=== PATIENT | female | born 2000 | race African-American/Black ===

== ENCOUNTER 2020-11-02 07:24 | Emergency (ER) | payer SELFPAY ==
[~2020-11-02] VITALS: Ht 162.6 cm; Wt 56.0 kg
[2020-11-02 07:36] VITALS: BP 105/71
--- NOTE | 2020-11-02 07:52 | PHYS DOC ---
Past History Past Medical History: No Pertinent History Past Surgical History: Other Additional Past Surgical Histo: right arm Alcohol Use: None Adult General Chief Complaint Chief Complaint: VAGINAL PROBLEM HPI HPI Patient is a 20-year-old female complaining for vaginal discharge and odor. Patient is 9 , first found out she was yesterday and currently pending outpatient [facility]LINDER MACHINE OPERATOR visit to establish care. Here today as she started noticing thicker discharge than usual with a foul-smelling odor. She is here today concerned for bacterial vaginosis. She has unprotected sex with x1 individual, her partner. She has no history of STDs. She does not want to be checked for gonorrhea and chlamydia today and deferred this to her initial CYLINDER MACHINE OPERATOR visit, she just wants to be checked for bacterial vaginosis today Review of Systems Review of Systems Fourteen body systems of review of systems have been reviewed. See HPI for pertinent positives and negative responses, other sanchez all other systems are negative, non-pertinent or non-contributory Allergies Allergies Allergies Coded Allergies Type Severity Reaction Last Updated Verified No Known Drug Allergies 11/02/20 No Physical Exam Physical Exam Constitutional: Well developed, well nourished, no acute distress, non-toxic appearance. HENT: Normocephalic, atraumatic, bilateral external ears normal, oropharynx moist, no oral exudates, nose normal. Eyes: PERRLA, EOMI, conjunctiva normal, no discharge. Neck: Normal range of motion, no tenderness, supple, no stridor. Cardiovascular: Heart rate regular, sinus rhythm, no murmurs rubs or gallops Lungs & Thorax: Bilateral breath sounds clear to auscultation Abdomen: Bowel sounds normal, soft, no tenderness, no masses, no pulsatile masses. Nonsurgical abdomen, no peritoneal signs : External genitalia unremarkable, no lesions or obvious exudate, vaginal vault unremarkable, cervix well-appearing, there is moderate amount of malodorous thick white discharge without any other concerning abnormalities or foreign bodies Skin: Warm, dry, no erythema, no rash. Back: No tenderness, no CVA tenderness. Extremities: No tenderness, no cyanosis, no clubbing, ROM intact, no edema. Neurologic: Alert and oriented X 3, grossly normal motor & sensory function, no focal deficits noted. Psychologic: Anxious affect and mood Current Patient Data Vital Signs Vital Signs Date Time Temp Pulse Resp B/P (MAP) Pulse Ox O2 Delivery O2 Flow Rate FiO2 11/02/20 07:36 98.1 79 18 105/71 (82) 99 Room Air Lab Results Laboratory Tests Test 11/02/20 07:40 11/02/20 07:48 Urine Collection Type Unknown Urine Color Yellow Urine Clarity Hazy Urine pH 7.0 Urine Specific [place] 1.025 Urine Protein Neg Urine Glucose (UA) Neg mg/dL Urine Ketones (Stick) Neg mg/dL Urine Blood Neg Urine Nitrite Neg Urine Bilirubin Neg Urine Urobilinogen Dipstick 1.0 mg/dL Urine Leukocyte Esterase Neg Urine RBC Occ /HPF Urine WBC 1-4 /HPF Urine Squamous Epithelial Cells Few /LPF Urine Bacteria Few /HPF Urine Mucus Slight /LPF Bedside Urine HCG, Qualitative hcg positive EKG EKG [] Radiology/Procedures Radiology/Procedures [] Heart Score Risk Factors: Risk Factors: DM, Current or recent (<one month) smoker, HTN, HLP, family history of CAD, obesity. Risk Scores: Risk Factors: DM, Current or recent (<one month) smoker, HTN, HLP, family history of CAD, obesity. Course & Med Decision Making Course & Med Decision Making Discussed with the patient all findings and diagnostic testing. I discussed most likely diagnosis of bacterial vaginosis. Discussed treatment options that included Flagyl or clindamycin, joint decision to pursue Flagyl therapy. I stressed need for close outpatient follow-up to review today's ER visit. Strict return precautions were also discussed at length with good understanding by patient. Patient voiced understanding and agreement with the plan. Patient knows to come back for repeat evaluation if concerning signs or symptoms present prior to outpatient follow-up. Hemodynamically stable, ambulatory and well- appearing at time of disposition. Dragon Disclaimer Dragon Disclaimer This electronic medical record was generated, in whole or in part, using a voice recognition dictation system. Departure Departure: Impression: Primary Impression: Bacterial vaginosis in Disposition: 01 DC HOME SELF CARE/HOMELESS Condition: GOOD Referrals: PCP,TALIA (PCP) Patient Instructions: Bacterial Vaginosis Additional Instructions: As discussed prior to ER departure, you were diagnosed with bacterial vaginosis. This is not an STD. This will respond to medical therapy with Flagyl medication that was given to you prior to ER departure. It is imperative anyways that you do not drink while but it is especially imperative to not drink while using this medication. Please follow-up with your CYLINDER MACHINE OPERATOR to establish care as he recently found out you are . If any concerning signs or symptoms present prior to outpatient follow-up please do not hesitate to come back for repeat evaluation. It was a pleasure to take care of you and I wish you the best going forward Scripts Metronidazole (FLAGYL) 500 Mg Tablet 500 MG PO BID for bacterial vaginosis for 7 Days, #13 TAB Prov: AUSTYN IBARRA DO 11/02/20 AUSTYN IBARRA DO Nov 02, 2020 07:51
[2020-11-02 08:12] LABS: BACTERIA,URINE FEW /HPF (0-FEW); BILIRUBIN,URINE NEG (NEG); CLARITY,URINE HAZY; COLOR,URINE YELLOW; GLUCOSE,URINE NEG (NEG); NITRITE,URINE NEG (NEG); RBC,URINE OCC /HPF (0-2); SQUAMOUS EPITHELIAL CELL,UR FEW /LPF
[2020-11-02] MEDS ORDERED: METR500T PO (08:51)
[2020-11-02] MEDS ORDERED: metroNIDAZOLE 500 MG TABLET PO ONE (09:00)
== END 2020-11-02 09:10 | disposition home or self-care (01) ==
LOC: ER 07:24
DX: O23.591 Infection of other part of genital tract in pregnancy, first trimester (principal); B96.89 Other specified bacterial agents as the cause of diseases classified elsewhere; Z3A.09 9 weeks gestation of pregnancy
CPT/HCPCS: 81001; 81025; 99283; Q0111

== ENCOUNTER 2020-11-23 08:08 | Emergency (ER) | payer SELFPAY ==
[~2020-11-23] VITALS: Ht 160 cm; Wt 54.0 kg
[~2020-11-23 08:08] MED LIST: METR500T PO
[2020-11-23 08:13] VITALS: BP 124/62
[2020-11-23] MEDS ORDERED: IV NORMAL SALINE 1,000ML 1,000 ML IV ONE (08:30)
[2020-11-23] MEDS ORDERED: ONDANSETRON PF 4 MG/2 ML VIAL. IVP ONE (08:30)
--- NOTE | 2020-11-23 09:05 | PHYS DOC ---
Past History Past Medical History: No Pertinent History Past Surgical History: Other Additional Past Surgical Histo: right arm Alcohol Use: None Adult General Chief Complaint Chief Complaint: NAUSEA/VOMITING/DIARRHEA HPI HPI Patient is a 20-year-old female who presents to the emergency room complaining of abdominal pain, nausea, vomiting, spotting. Patient reports that she is . She is unsure how far along she is. She had a positive test at the beginning of this month. She has her first OB appointment tomorrow. She states symptoms started a couple days ago. This is her second . She states she had vomiting with her first as well. She states the abdominal pain is lower and feels like cramping. She states that she has wiped a couple of times over the last couple days and has had a small pink tinge suggestive of spotting. She feels like she is unable to keep anything down. Review of Systems Review of Systems Complete ROS is negative unless otherwise documented in HPI Current Medications Current Medications Current Medications Medications (Trade) Dose Ordered Sig/Cherri Start Time Stop Time Status Last Admin Dose Admin Ondansetron HCl (Zofran) 4 mg 1X ONCE 11/23/20 08:30 11/23/20 08:34 DC 11/23/20 08:45 4 MG Sodium Chloride 1,000 ml @ 1,000 mls/hr 1X ONCE 11/23/20 08:30 11/23/20 09:29 11/23/20 08:46 1,000 MLS/HR Allergies Allergies Allergies Coded Allergies Type Severity Reaction Last Updated Verified No Known Drug Allergies 11/02/20 No Physical Exam Physical Exam General: Awake, alert, NAD. Well Nourished, well hydrated. Cooperative HEENT: Atraumatic, EOMI, PERRL, airway patent, moist oral mucosa Neck: Supple, trachea midline Respiratory: CTA bilaterally, normal effort, no wheezing/crackles CV: RRR, no murmur, cap refill <2 GI: Soft, nondistended, nontender, no masses MSK: No obvious deformities Skin: Warm, dry, intact Neuro: A&O x3, speech NL, sensory and motor grossly intact, no focal deficits Psych: Normal affect, normal mood, not suicidal or homicidal Current Patient Data Vital Signs Vital Signs Date Time Temp Pulse Resp B/P (MAP) Pulse Ox O2 Delivery O2 Flow Rate FiO2 11/23/20 08:13 97.4 82 16 124/62 (82) 100 Room Air EKG EKG [] Radiology/Procedures Radiology/Procedures [] Heart Score Risk Factors: Risk Factors: DM, Current or recent (<one month) smoker, HTN, HLP, family history of CAD, obesity. Risk Scores: Risk Factors: DM, Current or recent (<one month) smoker, HTN, HLP, family history of CAD, obesity. Course & Med Decision Making Course & Med Decision Making Pertinent Labs and Imaging studies reviewed. (See chart for details) Patient is a 20-year-old female who presents to the emergency room complaining of vomiting, abdominal pain, spotting in . Given that she is not had an ultrasound yet we will do a beta-hCG and an ultrasound to rule out ectopic p regnancy. CBC and BMP ordered to evaluate patient's hydration status and any signs of infection or anemia. Patient was given fluids and Zofran. While here in the emergency room patient developed chest pain. EKG and chest x-ray were ordered. Patient was given Tylenol. She is not hypoxic and pain is not suggestive of a pulmonary embolism. Patient is feeling significantly better. She will be discharged home on Zofran. She has a follow-up appointment tomorrow. Patient's test results and vitals while in the ED were fully reviewed and discussed with the patient. Patient is stable and at this time does not need admission to the hospital. We have discussed strict return precautions and the importance of following up with their Primary Care Physician. Patient stated understanding and was given an opportunity to ask any questions. Patient is in agreement with plan. Dragon Disclaimer Dragon Disclaimer This electronic medical record was generated, in whole or in part, using a voice recognition dictation system. Departure Departure: Impression: Primary Impression: Vomiting affecting Disposition: 01 DC HOME SELF CARE/HOMELESS Condition: IMPROVED Referrals: PCP,NO (PCP) Patient Instructions: Abdominal Pain During Scripts Nitrofurantoin Monohyd/M-Cryst (MACROBID 100 MG CAPSULE) 100 Mg Capsule 1 CAP PO BID for UTI for 5 Days, #10 CAP 0 Refills Prov: GILDA WANG MD 11/23/20 Doxylamine/Pyridoxine Hcl (DICLEGIS 10-10 MG TABLET) 1 Each Tablet. 2 TAB PO QHS for morning sickness for 30 Days, #60 TAB 0 Refills Prov: GILDA WANG MD 11/23/20 Ondansetron (ONDANSETRON ODT) 4 Mg Tab.rapdis 1 TAB PO PRN Q6-8HRS for nausea, #16 TAB Prov: GILDA WANG MD 11/23/20 GILDA WANG MD Nov 23, 2020 09:05
[2020-11-23] MEDS ORDERED: ACETAMINOPHEN 325 MG TABLET PO ONE (09:15)
--- NOTE | 2020-11-23 09:17 | EKG ---
[address] [address] Test Date: 2020-11-23 Test Time: 09:10:34 Pat Name: HARDIK VELA Department: Room: Gender: F Coding Validator: SHAINA : 2000 Requested By: GILDA WANG Order Number: [id number] Reading MD: Measurements Intervals [place] Rate: 85 P: 64 MT: 164 QRS: 89 QRSD: 96 T: 62 QT: 346 QTc: 417 Interpretive Statements SINUS RHYTHM S1,S2,S3 PATTERN NO SPECIFIC ECG ABNORMALITIES RI6.02 No previous ECG available for comparison
[2020-11-23 09:19] LABS: BASO % 1 % (0-3); EOS # 0.1 x10^3/uL (0.0-0.7); EOS % 1 % (0-3); HEMOGLOBIN 14.4 g/dL (12.0-15.5); LYMPH # 2.1 x10^3/uL (1.0-4.8); LYMPH % 48 % (24-48); MEAN CORPUSCULAR HEMOGLOBIN 32 pg (25-35); MEAN CORPUSCULAR HGB CONC 34 g/dL (31-37); MEAN CORPUSCULAR VOLUME 94 fL (79-100); MONO # 0.5 x10^3/uL (0.0-1.1); MONO % 10 % (0-9); NEUT # 1.8 x10^3uL (1.8-7.7); NEUT % 40 % (31-73); PLATELET COUNT 123 x10^3/uL (140-400); RED BLOOD COUNT 4.56 x10^6/uL (3.50-5.40); RED CELL DISTRIBUTION WIDTH 13.6 % (11.5-14.5); WHITE BLOOD COUNT 4.4 x10^3/uL (4.0-11.0)
[2020-11-23 09:28] LABS: HEMOGLOBIN ISTAT 12.9 gm/dL; POTASSIUM ISTAT 3.7 mmol/L (3.5-5.0)
--- NOTE | 2020-11-23 09:43 | RAD ---
EXAM: CHEST 1 VIEW History: Chest pain COMPARISON: None available. TECHNIQUE: Single portable radiograph of the chest FINDINGS: The cardiac silhouette is unremarkable. The lungs are clear bilaterally. The costophrenic sulci are clear and well demarcated. IMPRESSION: No radiographic evidence of an acute cardiopulmonary process. Electronically signed by: Pj Oleary MD (11/23/2020 9:33 AM) [id number]
[2020-11-23 10:33] LABS: BILIRUBIN,URINE NEG (NEG); CLARITY,URINE HAZY; COLOR,URINE YELLOW; GLUCOSE,URINE NEG (NEG)
[2020-11-23 10:34] LABS: BACTERIA,URINE 0 /HPF (0-FEW); NITRITE,URINE NEG (NEG); RBC,URINE OCC /HPF (0-2); SQUAMOUS EPITHELIAL CELL,UR MANY /LPF; UROBILINOGEN,URINE 0.2 mg/dL (0.2 mg/dL)
--- NOTE | 2020-11-23 10:39 | RAD ---
EXAM: Pelvic sonogram. HISTORY: Bleeding and pain. TECHNIQUE: Sonographic imaging of the pelvis was performed. COMPARISON: None. FINDINGS: The uterus measures 8.7 x 5.3 x 8.2 cm. There is a single intrauterine gestational sac with pole and yolk sac. The crown-rump length is 6.3 mm, corresponding with a gestational age of 6 weeks and 3 days. The heart rate is 140 bpm. The gestational sac is normal in considerati on and location. There is no evidence of a subchorionic hematoma. The ovaries are normal in size and demonstrate normal blood flow. There is no pelvic free fluid. IMPRESSION: 1. Single intrauterine fetus with normal heart rate and gestational age based on ultrasound measureme nts of 6 weeks and 3 days. 2. No acute sonographic finding. Electronically signed by: Ally Morel MD (11/23/2020 10:31 AM) [facility]
[2020-11-23] MEDS ORDERED: DOXY1TAB3 PO (11:10)
[2020-11-23] MEDS ORDERED: ONDA4TAB12 PO (11:10)
[2020-11-23] MEDS ORDERED: NITR100C62 PO (11:11)
== END 2020-11-23 11:24 | disposition home or self-care (01) ==
LOC: ER 08:08
DX: O21.9 Vomiting of pregnancy, unspecified (principal); R10.9 Unspecified abdominal pain; Z98.890 Other specified postprocedural states
CPT/HCPCS: 36415; 71045; 76801; 80047; 81001; 81025; 84702; 85025; 93005; 96361; 96374; 99285; J2405; J7030

== ENCOUNTER 2020-12-08 05:20 | Emergency (ER) | payer SELFPAY ==
[~2020-12-08] VITALS: Ht 160 cm; Wt 54.0 kg
[2020-12-08 05:20] VITALS: BP 143/69
[~2020-12-08 05:20] MED LIST changes: +DOXY1TAB3 PO; +NITR100C62 PO; +ONDA4TAB12 PO
--- NOTE | 2020-12-08 05:34 | PHYS DOC ---
Past History Past Medical History: No Pertinent History (AMY OLIVO MD) Past Surgical History: Other Additional Past Surgical Histo: right arm (AMY OLIVO MD) Alcohol Use: None (AMY OLIVO MD) General Adult HPI: HPI: ".. I am out of my nausea.. meds.. the Zofran.. .. I ate chicken quesadilla.. Last night.. But after I went to bed I started having my vomiting and.. I have ... been vomiting all night long..... I was here back on the October for the same thing.. no spotting tonight....just this stomach pain from vomiting..."." up here in the pit of my stomach.. " I am vomiting so hard.. it makes my upper back and chest hurt now.. ".." Just drank water this morning .. and I am even puking that up.. " Patient is a 20 year old female who presents with above hx and complaints intractable hyperemesis gravidarum since eating quesadilla last night. Patient seen on arrival. Patient is estimated 8 weeks . This is her second . Did have similar symptoms with first . Pt. has been taking vitamins when she is not vomiting. Patient does have scheduled follow- up at where she plans to deliver. Patient currently following [facility]. Patient did have bacterial vaginosis on 11/02/2020 visit which was treated with antibiotics. Patient requesting Touraan which worked for her in the past for the intractable vomiting associated with her . Patient denies any travel. Patient denies significant ill contacts. Patient denies any trauma. Patient denies any intake of bad food. Patient currently dry heaving during her interview. Pt. has not had US as yet with this . Pt. denies prior history of gallbladder disease with her or family members. (AMY OLIVO MD) Review of Systems: Review of Systems: Constitutional: Denies fever or chills Eyes: Denies change in visual acuity HENT: Denies nasal congestion or sore throat Respiratory: Denies cough or shortness of breath Cardiovascular: Denies chest pain or edema GI: Complaints of epigastric and rt. upper quadrant abdominal pain, nausea, vomiting,. Denies bloody stools or diarrhea : Denies dysuria Musculoskeletal: Denies back pain or joint pain Integument: Denies rash Neurologic: Denies headache, focal weakness or sensory changes Endocrine: Denies polyuria or polydipsia Lymphatic: Denies swollen glands Psychiatric: Denies depression or anxiety (AMY OLIVO MD) Family History: Family History: Noncontributory to presentation. (AMY OLIVO MD) Current Medications: Current Meds: See Nursing (AMY OLIVO MD) Allergies: Allergies: Allergies Coded Allergies Type Severity Reaction Last Updated Verified No Known Drug Allergies 11/02/20 No (AMY OLIVO MD) Physical Exam: PE: Constitutional: in acute distress, non-toxic appearance. Actively dry heaving.] HENT: Normocephalic, atraumatic, bilateral external ears normal, oropharynx dry, no oral exudates, nose normal. [] Eyes: PERRLA, EOMI, conjunctiva normal, no discharge. [] Neck: Normal range of motion, no tenderness, supple, no stridor. [] Cardiovascular: Tachycardia Heart rate regular rhythm, no murmur [] Monitor show sinus tachycardia rhythm, no obvious acute morphology. Lungs & Thorax: Bilateral breath sounds equal at apexes on auscultation [] Abdomen: Bowel sounds decreased, soft, epigatric and right upper abd. tenderness, no masses, no pulsatile masses. Pt. deferring pelvic exam at this time states she has not had any discharge or bleeding. Skin: Warm, dry, no erythema, no rash. [] Back: No tenderness, no CVA tenderness. [] Extremities: No tenderness, no cyanosis, no clubbing, ROM intact, no edema. No cording appreciated. Scar Rt. arm. Neurologic: Alert and oriented X 3, moves extremities on request, has distal sensory,, no focal deficits noted. [] DTRs +2 patella and brachial. Psychologic: Affect anxious, judgement normal, mood normal. [] (AMY OLIVO MD) EKG: EKG: [] (AMY OLIVO MD) Radiology/Procedures: Radiology/Procedures: Ultrasound pending at shift change [] Impressions: [place] [address] IMAGING REPORT Signed PATIENT: HARDIK VELA ACCOUNT: [id number] : 2000 LOCATION: ER AGE: 20 SEX: F EXAM STATUS: REG ER ORD. PHYSICIAN: AMY OLIVO MD REASON: Rt upper,epigastric pain, est 8 week PROCEDURE: ABDOMEN LTD EXAM: Gallbladder Ultrasound INDICATION: Reason: Rt upper,epigastric pain, est 8 week / Spl. Instructions: / History: TECHNIQUE: Real-time ultrasound of the gallbladder was performed with permanent freeze-frame documentation. COMPARISON: None FINDINGS: BILIARY:?Gallbladder is unremarkable. No biliary ductal dilatation. The common bile duct measures 0.3 cm. OTHER: Visualized liver, right kidney and pancreas are unremarkable. IMPRESSION: Normal gallbladder ultrasound. Electronically signed by: Trini Plascencia MD (12/08/2020 7:55 AM) [id number] DICTATED AND SIGNED BY: TRINI PLASCENCIA MD DATE: 12/08/20 0754 CC: AMY OLIVO MD; PCP,NO ~MTH0 0 (AMY OLIVO MD) Heart Score: Risk Factors: Risk Factors: DM, Current or recent (<one month) smoker, HTN, HLP, family history of CAD, obesity. Risk Scores: Score 0 - 3: 2.5% MACE over next 6 weeks - Discharge Home Score 4 - 6: 20.3% MACE over next 6 weeks - Admit for Clinical Observation Score 7 - 10: 72.7% MACE over next 6 weeks - Early Invasive Strategies (AMY OLIVO MD) Course & Med Decision Making: Course & Med Decision Making Pertinent Labs and Imaging studies reviewed. (See chart for details) Patient endorsed to at shift change. Labs, US pending. She will make disposition. Impression: 1. Hx. G2, T1 2. Hx Estimate 8 weeks gravid 3. Abdomen pain-epigastric 4. Hyperemesis gravidarum 5. Beta HCG= 36, 689- on 11/23, Tonight 148,575 6. Blood Type Mother= AB+ positive [] (AMY OLIVO MD) Course & Med Decision Making DUE TO PROLONGED EMR DOWNTIME/HOSPITAL POLICY, PTS' FULL CHART FROM MY EVALUATION WAS DOCUMENTED VIA PAPER CHARTING. - PLEASE REFER TO PAPER DOCUMENTS FOR FULL INFORMATION REGARDING PTS' ED VISIT. (YOMI CABRERA DO) Dragon Disclaimer: Dragon Disclaimer: This electronic medical record was generated, in whole or in part, using a voice recognition dictation system. (AMY OLIVO MD) Departure Departure: Impression: Primary Impression: Hyperemesis gravidarum Additional Impression: Marijuana use Disposition: 01 DC HOME SELF CARE/HOMELESS Condition: STABLE Referrals: PCP,NO (PCP) Dragon Disclaimer This chart was dictated in whole or in part using Voice Recognition software in a busy, high-work load, and often noisy Emergency Department environment. It may contain unintended and wholly unrecognized errors or omissions. (AMY OLIVO MD) Dragon Disclaimer This chart was dictated in whole or in part using Voice Recognition software in a busy, high-work load, and often noisy Emergency Department environment. It may contain unintended and wholly unrecognized errors or omissions. (AMY OLIVO MD) Dragon Disclaimer This chart was dictated in whole or in part using Voice Recognition software in a busy, high-work load, and often noisy Emergency Department environment. It may contain unintended and wholly unrecognized errors or omissions. (AMY OLIVO MD) Dragon Disclaimer This chart was dictated in whole or in part using Voice Recognition software in a busy, high-work load, and often noisy Emergency Department environment. It may contain unintended and wholly unrecognized errors or omissions. (AMY OLIVO MD) AMY OLIVO MD Dec 08, 2020 05:34 YOMI CABRERA DO Dec 08, 2020 13:50
[2020-12-08 05:53] LABS: BASO % 0 % (0-3); EOS % 1 % (0-3); HEMOGLOBIN 13.2 g/dL (12.0-15.5); LYMPH # 1.6 x10^3/uL (1.0-4.8); LYMPH % 29 % (24-48); MEAN CORPUSCULAR HEMOGLOBIN 31 pg (25-35); MEAN CORPUSCULAR HGB CONC 34 g/dL (31-37); MEAN CORPUSCULAR VOLUME 92 fL (79-100); MONO # 0.4 x10^3/uL (0.0-1.1); MONO % 7 % (0-9); NEUT # 3.5 x10^3uL (1.8-7.7); NEUT % 63 % (31-73); PLATELET COUNT 169 x10^3/uL (140-400); RED BLOOD COUNT 4.25 x10^6/uL (3.50-5.40); RED CELL DISTRIBUTION WIDTH 13.2 % (11.5-14.5); WHITE BLOOD COUNT 5.5 x10^3/uL (4.0-11.0)
[2020-12-08] MEDS ORDERED: ONDANSETRON PF 4 MG/2 ML VIAL. IVP ONE ×2 (06:00→06:30)
[2020-12-08] MEDS ORDERED: IV RINGERS SOLUTION,LACTATED 1,000 ML IV SCH (06:00)
[2020-12-08] MEDS ORDERED: FAMOTIDINE 20 MG/2 ML VIAL IVP ONE (06:00)
[2020-12-08 06:14] LABS: CALCIUM 8.9 mg/dL (8.5-10.1); CREATININE 0.9 mg/dL (0.6-1.0); GFR 95.6; POTASSIUM 3.8 mmol/L (3.5-5.1)
[2020-12-08 06:22] LABS: ALBUMIN 3.6 g/dL (3.4-5.0); DIRECT BILIRUBIN 0.2 mg/dL (0.0-0.2); TOTAL BILIRUBIN 0.6 mg/dL (0.2-1.0); TOTAL PROTEIN 7.9 g/dL (6.4-8.2)
[2020-12-08 07:33] LABS: AMPHETAMINE/METHAMPHETAMINE NEG (NEG); BARBITURATES NEG (NEG); BENZODIAZEPINES NEG (NEG); CANNABINOIDS POS (NEG); COCAINE NEG (NEG); METHADONE NEG (NEG); OPIATES NEG (NEG); PHENCYCLIDINE NEG (NEG)
[2020-12-08 07:38] LABS: BACTERIA,URINE FEW /HPF (0-FEW); BILIRUBIN,URINE NEG (NEG); CLARITY,URINE CLEAR; COLOR,URINE YELLOW; GLUCOSE,URINE NEG (NEG); NITRITE,URINE NEG (NEG); RBC,URINE RARE /HPF (0-2); SQUAMOUS EPITHELIAL CELL,UR FEW /LPF; UROBILINOGEN,URINE 0.2 mg/dL (0.2 mg/dL); WBC,URINE OCC /HPF (0-4)
--- NOTE | 2020-12-08 07:58 | RAD ---
EXAM: Gallbladder Ultrasound INDICATION: Reason: Rt upper,epigastric pain, est 8 week / Spl. Instructions: / History: TECHNIQUE: Real-time ultrasound of the gallbladder was performed with permanent freeze-frame documen tation. COMPARISON: None FINDINGS: BILIARY:?Gallbladder is unremarkable. No biliary ductal dilatation. The common bile duct measures 0.3 cm. OTHER: Visualized liver, right kidney and pancreas are unremarkable. IMPRESSION: Normal gallbladder ultrasound. Electronically signed by: Faiza Plascencia MD (12/08/2020 7:55 AM) [id number]
== END 2020-12-08 08:55 | disposition home or self-care (01) ==
LOC: ER 05:20
DX: O21.0 Mild hyperemesis gravidarum (principal); R10.13 Epigastric pain; O99.321 Drug use complicating pregnancy, first trimester; F12.10 Cannabis abuse, uncomplicated; Z3A.08 8 weeks gestation of pregnancy
CPT/HCPCS: 36415; 76705; 80048; 80076; 80307; 81001; 83690; 83735; 84702; 85025; 85610; 85730; 86900; 86901; 96361; 96374; 96375; 96376; 99284; J2405; J3490; J7120

== ENCOUNTER 2020-12-15 09:55 | Emergency (ER) | payer SELFPAY ==
[~2020-12-15] VITALS: Ht 160 cm; Wt 54.0 kg
[2020-12-15] MEDS ORDERED: ONDANSETRON PF 4 MG/2 ML VIAL. ONE (10:05)
[2020-12-15] MEDS ORDERED: ONDANSETRON PF 4 MG/2 ML VIAL. IVP ONE (10:15)
[2020-12-15] MEDS ORDERED: METOCLOPRAMIDE 10 MG TABLET PO ONE (10:15)
--- NOTE | 2020-12-15 10:19 | PHYS DOC ---
Past History Past Medical History: No Pertinent History Past Surgical History: Other Additional Past Surgical Histo: right arm Alcohol Use: None Social History Narrative: none since preg Adult General Chief Complaint Chief Complaint: VOMITING IN HPI HPI Patient is a 20F with no significant past medical history 9 weeks by ultrasound presents emergency department for new onset of nausea and vomiting. This is a patient second and she states that she did not have this problem during the first . Patient states that she has been having issues with prolonged nausea and vomiting over the last 2 weeks. Patient was seen here approximate 1 week ago and was given Zofran and had improvement of her symptoms but states that she ran out. Patient states that she woke up this morning around 4 AM and noted new onset of nausea and vomiting without any diarrhea or fever. Denies any associated abdominal pain denies any chest pain or shortness of breath. Review of Systems Review of Systems Constitutional: Denies fever or chills [] Eyes: Denies change in visual acuity, redness, or eye pain [] HENT: Denies nasal congestion or sore throat [] Respiratory: Denies cough or shortness of breath [] Cardiovascular: No additional information not addressed in HPI [] GI: Denies abdominal pain, nausea, vomiting, bloody stools or diarrhea [] : Denies dysuria or hematuria [] Musculoskeletal: Denies back pain or joint pain [] Integument: Denies rash or skin lesions [] Neurologic: Denies headache, focal weakness or sensory changes [] Endocrine: Denies polyuria or polydipsia [] All other systems were reviewed and found to be within normal limits, except as documented in this note. Current Medications Current Medications Current Medications Medications (Trade) Dose Ordered Sig/Cherri Start Time Stop Time Status Last Admin Dose Admin Metoclopramide HCl (Reglan) 10 mg 1X ONCE 12/15/20 10:15 12/15/20 10:16 DC Ondansetron HCl (Zofran) 4 mg STK-MED ONCE 12/15/20 10:05 12/15/20 10:05 DC Allergies Allergies Allergies Coded Allergies Type Severity Reaction Last Updated Verified No Known Drug Allergies 12/15/20 No Physical Exam Physical Exam Constitutional: Well developed, well nourished, no acute distress, non-toxic appearance. [] HENT: Normocephalic, atraumatic, bilateral external ears normal, oropharynx moist, no oral exudates, nose normal. [] Eyes: PERRLA, EOMI, conjunctiva normal, no discharge. [] Neck: Normal range of motion, no tenderness, supple, no stridor. [] Cardiovascular:Heart rate regular rhythm, no murmur [] Lungs & Thorax: Bilateral breath sounds clear to auscultation [] Abdomen: Bowel sounds normal, soft, no tenderness, no masses, no pulsatile masses. [] Skin: Warm, dry, no erythema, no rash. [] Back: No tenderness, no CVA tenderness. [] Extremities: No tenderness, no cyanosis, no clubbing, ROM intact, no edema. [] Neurologic: Alert and oriented X 3, normal motor function, normal sensory function, no focal deficits noted. [] Psychologic: Affect normal, judgement normal, mood normal. [] Current Patient Data Vital Signs Vital Signs Date Time Temp Pulse Resp B/P (MAP) Pulse Ox O2 Delivery O2 Flow Rate FiO2 12/15/20 10:08 98.0 81 20 119/51 (73) 99 Room Air EKG EKG [] Radiology/Procedures Radiology/Procedures [] Heart Score Risk Factors: Risk Factors: DM, Current or recent (<one month) smoker, HTN, HLP, family history of CAD, obesity. Risk Scores: Risk Factors: DM, Current or recent (<one month) smoker, HTN, HLP, family history of CAD, obesity. Course & Med Decision Making Course & Med Decision Making Pertinent Labs and Imaging studies reviewed. (See chart for details) 20F with associated nausea and vomiting. No significant abdominal tenderness at this time. At this time will obtain basic labs make sure there is no significant underlying electrolyte deficiency or abnormality and treat the patient with IV fluids and antiemetics. Dragon Disclaimer Dragon Disclaimer This electronic medical record was generated, in whole or in part, using a voice recognition dictation system. Departure Departure: Impression: Primary Impression: Hyperemesis arising during Disposition: 01 DC HOME SELF CARE/HOMELESS Condition: GOOD Referrals: SOPHIA GARCIA MD Patient Instructions: Hyperemesis Gravidarum Additional Instructions: EMERGENCY DEPARTMENT GENERAL DISCHARGE INSTRUCTIONS Thank you for coming to [facility] Emergency Department (ED) today and trusting us with you care. We trust that you had a positive experience in our Emergency Department. If you wish to speak to the department management, you may call the Director at [phone]. YOUR FOLLOW UP INSTRUCTIONS ARE FOLLOWS: 1. Do you have a private Doctor? If you do not have a private doctor, please ask for a resource list of physicians or clinics that may be able to assist you with follow up care. 2. The Emergency Physicain has interpreted your x-rays. The X-Ray specialist will also review them. If there is a change in the findings, you will be notified in 48 hours when at all possible. 3. A lab test or culture has been done, your results will be reviewed and you will be notified if you need a change in treatment. ADDITIONAL INSTRUCTIONS AND INFORMATION: 1. Your care today has been supervised by a physician who is specially trained in emergency care. Many problems require more than one evaluation for a complete diagnosis and treatment. We recommend that you schedule your follow up appointment as recommended to ensure complete treatment of you illness or injury. If you are unable to obtain follow up care and continue to have a problem, or if your condition worsens, we recommend that you return to the ED. 2. We are not able to safely determine your condition over the phone nor are we able to give sound medical advice over the phone. For these safety reasons, if you call for medical advice we will ask you to come to the ED for further evaluation. 3. If you have any questions regarding these discharge instructions please call the ED at [phone]. SAFETY INFORMATION: In the interest of safety, wellness, and injury prevention; we encourage you to wear your sealbelt, if you smoke; quite smoking, and we encourage family to use a protective helmet for bicycling and other sporting events that present an increased risk for head injury. IF YOUR SYMPTOMS WORSEN OR NEW SYMPTOMS DEVELOP, OR YOU HAVE CONCERNS ABOUT YOUR CONDITION; OR IF YOUR CONDITION WORSENS WHILE YOU ARE WAITING FOR YOUR FOLLOW UP APPOINTMENT; EITHER CONTACT YOUR PRIMARY CARE DOCTOR, THE PHYSICIAN WHOSE NAME AND NUMBER YOU WERE GIVEN, OR RETURN TO THE ED IMMEDIATELY. Scripts Ondansetron Hcl (ZOFRAN) 4 Mg Tablet 1 TAB PO PRN Q6HRS PRN for NAUSEA, #6 TAB Prov: SADAF CLARKE MD 12/15/20 SADAF CLARKE MD Dec 15, 2020 10:19
[2020-12-15 10:28] LABS: BASO % 0 % (0-3); EOS % 0 % (0-3); HEMOGLOBIN 14.2 g/dL (12.0-15.5); LYMPH # 1.8 x10^3/uL (1.0-4.8); LYMPH % 28 % (24-48); MEAN CORPUSCULAR HEMOGLOBIN 31 pg (25-35); MEAN CORPUSCULAR HGB CONC 34 g/dL (31-37); MEAN CORPUSCULAR VOLUME 92 fL (79-100); MONO # 0.3 x10^3/uL (0.0-1.1); MONO % 4 % (0-9); NEUT # 4.4 x10^3uL (1.8-7.7); NEUT % 67 % (31-73); PLATELET COUNT 191 x10^3/uL (140-400); RED BLOOD COUNT 4.55 x10^6/uL (3.50-5.40); WHITE BLOOD COUNT 6.5 x10^3/uL (4.0-11.0)
[2020-12-15] MEDS ORDERED: IV NORMAL SALINE 1,000ML 1,000 ML IV ONE (10:30)
[2020-12-15 10:35] LABS: CALCIUM 9.3 mg/dL (8.5-10.1); CREATININE 0.7 mg/dL (0.6-1.0); GFR 127.8; POTASSIUM 4.1 mmol/L (3.5-5.1)
[2020-12-15 10:41] LABS: ALBUMIN 3.6 g/dL (3.4-5.0); ALBUMIN/GLOBULIN RATIO 0.8 (1.0-1.7); TOTAL PROTEIN 8.2 g/dL (6.4-8.2)
[2020-12-15 11:32] LABS: BILIRUBIN,URINE NEG (NEG); CLARITY,URINE CLEAR; COLOR,URINE YELLOW; GLUCOSE,URINE NEG (NEG); NITRITE,URINE NEG (NEG)
[2020-12-15 11:40] LABS: BACTERIA,URINE FEW /HPF (0-FEW); RBC,URINE OCC /HPF (0-2); SQUAMOUS EPITHELIAL CELL,UR MANY /LPF; WBC,URINE OCC /HPF (0-4)
[2020-12-15] MEDS ORDERED: ONDA4TAB7 PO (12:00)
[2020-12-15 12:10] VITALS: BP 113/73
== END 2020-12-15 12:10 | disposition home or self-care (01) ==
LOC: ER 09:55
DX: O21.0 Mild hyperemesis gravidarum (principal); Z3A.09 9 weeks gestation of pregnancy
CPT/HCPCS: 36415; 80053; 81001; 83690; 85025; 96361; 96374; 99283; J2405; J7030